=== PATIENT | female | born 2005 | race Caucasian/White ===

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

== ENCOUNTER → 2025-05-03 13:56 | Outpatient (CLI) | payer OTHER, SELFPAY ==
[2025-05-03 19:30] LABS: Add Manual Diff / Slide Review NO; Hematocrit 40.5 % (36-46); Hemoglobin 13.4 g/dL (12.0-16.0); Lymphocytes Absolute Auto 3300 /uL (1100-4500); Mean Corpuscular HGB Conc 33.1 % (30-36); Mean Corpuscular Hemoglobin 27.3 PG (26-34); Mean Corpuscular Volume 82.6 fL (80-100); Platelet Count 336 X10^3/uL (150-400)
[2025-05-03 19:43] LABS: HEMOLYSIS < 15 (0-50)
[2025-05-03 19:52] LABS: Alanine Aminotransferase 21 IU/L (<35); Albumin 4.5 g/dL (3.5-5.0); Albumin Globulin Ratio 1.3 (1.0-2.8); Alkaline Phosphatase 69 U/L (38-126); Blood Urea Nitrogen 7 mg/dL (7-17); Calcium 9.8 mg/dL (8.4-10.2); Carbon Dioxide 26 mmol/L (22-32); Chloride 103 mmol/L (98-107); Cholesterol 190 mg/dL (140-199); Estimated Glomerular Filt Rate > 60 mL/min (>60); Globulin 3.6 g/dL (1.7-4.1); Glucose 109 mg/dL (70-99); HDL Cholesterol 58 mg/dL (40-60); HEMOLYSIS < 15 (0-50); Potassium 3.9 mmol/L (3.4-5.1); Sodium 140 mmol/L (137-145); Total Protein 8.1 g/dL (6.3-8.2); Triglycerides 122 mg/dL (35-150)
[2025-05-03 20:20] LABS: TSH w/ Reflex to FT4 1.01 uIU/mL (0.47-4.68)
[2025-05-03 20:24] LABS: Ferritin 17 ng/mL (6-137)
[2025-05-03 20:42] LABS: Iron 70 ug/dL (37-170)
[2025-05-03 20:58] LABS: Percent Iron Saturation 19 % (15-50); Total Iron Binding Capacity 368 ug/dL (265-497); Transferrin 294 mg/dL (206-381)
== END ==
PROVIDERS: PCP Physician Assistant Medical; Visit Provider Family Medicine
DX: R00.0 Tachycardia, unspecified (principal); R03.0 Elevated blood-pressure reading, without diagnosis of hypertension; Z13.6 Encounter for screening for cardiovascular disorders; Z13.1 Encounter for screening for diabetes mellitus
CPT/HCPCS: 80053; 80061; 82728; 83540; 83550; 84443; 85025